=== PATIENT | male | born 1965 | race Caucasian/White ===

== ENCOUNTER 2025-02-18 14:30 | Emergency (ER) | payer OTHER ==
[2025-02-18] MEDS: Lidocaine 1% with EPINEPHrine 1:200,000 30 ML SDV INJECT ONE (16:03)
[2025-02-18] MEDS: Diphtheria,Pertussis(Acell),Tetanus Vaccine 0.5 ML Syringe IM ONE (16:03)
== END 2025-02-18 17:13 | disposition home or self-care (01) ==
LOC: MW.ED 14:30
DX: S51.812A Laceration without foreign body of left forearm, initial encounter (principal); Z75.8 Other problems related to medical facilities and other health care; Z79.899 Other long term (current) drug therapy; W26.8XXA Contact with other sharp object(s), not elsewhere classified, initial encounter; Y93.89 Activity, other specified
CPT/HCPCS: 12002; 73090; 99283; J3490

== ENCOUNTER 2025-02-26 17:19 | Emergency (ER) | payer OTHER | END 2025-02-26 17:32 | disposition home or self-care (01) | LOC: MW.ED 17:19 | DX: S51.812D Laceration without foreign body of left forearm, subsequent encounter (principal); X58.XXXD Exposure to other specified factors, subsequent encounter | CPT/HCPCS: 99281 ==